=== PATIENT | male | born 1935 | race Caucasian/White ===

== ENCOUNTER 2018-06-05 14:27 | Observation (INO) | payer MEDICARE, BC ==
[~2018-06-05] VITALS: Ht 153.9 cm; Wt 52.6 kg
--- NOTE | 2018-06-05 15:58 | Diagnostic Imaging Report ---
Examination: Single AP view of the chest. COMPARISON: None. INDICATION: Chest pain DISCUSSION: The lungs are well-inflated. There is blunting of the left lateral costophrenic sulcus. Volume loss in the right lung apex with upward retraction of the hilum, right apical nodular opacities, and fullness of the right hilum. Cardiomediastinal contour is notable for postsurgical changes of median sternotomy and probable coronary artery bypass. Radiopaque catheters are partially visualized projecting over the upper abdomen. No acute osseous abnormalities. Healed fracture deformities of the left fifth through ninth ribs. Probable posttraumatic deformity of the proximal right humerus, partially visualized. IMPRESSION: Right hilar fullness with upward retraction, right apical volume loss and right apical nodules may be a sequela of prior granulomatous disease. In the absence of prior radiographs for comparison, CT scan of the chest with contrast is suggested for further evaluation. Blunting of the left lateral costophrenic sulcus may reflect pleural thickening in the setting of ipsilateral rib fracture deformities, though a small pleural effusion may have a similar appearance. Postsurgical changes of the mediastinum as above. Signed by: Dr. Jonathon Jonas M.D. on 06/05/2018 3:55 PM
[2018-06-05 16:30] LABS: BASOPHILS % 0.2 % (0.0-1.0); EOSINOPHILS % 0.2 % (0.0-6.0); HEMATOCRIT 37.6 % (38.2-49.6); HEMOGLOBIN 12.5 g/dL (14.0-18.0); LYMPHOCYTES # (AUTO) 0.8 (1.0-3.2); LYMPHOCYTES % 8.6 % (18.0-39.1); MEAN CORPUSCULAR HEMOGLOBIN 29.6 pg (28-32); MEAN CORPUSCULAR HGB CONC 33.2 g/dL (31-35); MEAN CORPUSCULAR VOLUME 89.1 fL (81-99); MONOCYTES # (AUTO) 0.7 (0.2-0.8); MONOCYTES % 7.7 % (4.4-11.3); NEUTROPHILS # (AUTO) 7.8 (2.1-6.9); NEUTROPHILS % 83.1 % (38.7-80.0); PLATELET COUNT 230 x10e3/uL (140-360); RED BLOOD COUNT 4.22 x10e6/uL (4.3-5.7); RED CELL DISTRIBUTION WIDTH 15.9 % (11.7-14.4)
[2018-06-05 16:36] LABS: PROTHROMBIN TIME 14.1 seconds (11.9-14.5)
[2018-06-05 16:37] LABS: PARTIAL THROMBOPLASTIN TIME 36.2 seconds (23.8-35.5)
[2018-06-05 16:46] LABS: ALBUMIN 2.5 g/dL (3.5-5.0); ALBUMIN/GLOBULIN RATIO 0.6 (0.8-2.0); ANION GAP 18.8 mmol/L (8-16); CALCIUM 8.9 mg/dL (8.4-10.2); CREATININE, SERUM 2.04 mg/dL (0.72-1.25); POTASSIUM 4.8 mmol/L (3.5-5.1)
[2018-06-05 16:52] LABS: CREATINE KINASE MB 6.7 ng/mL (0-5.0)
[2018-06-05] MEDS ORDERED: ASPIRIN 81 MG CHEW TAB PO ONE (18:15)
[2018-06-05 18:39] LABS: BILIRUBIN,URINE NEGATIVE (NEGATIVE); CLARITY,URINE HAZY (CLEAR); COLOR,URINE YELLOW (YELLOW); KETONES,URINE NEGATIVE (NEGATIVE); LEUKOCYTE ESTERASE ,URINE 2+ (NEGATIVE); NITRITE,URINE POSITIVE (NEGATIVE); PROTEIN,URINE DIPSTICK 1+ (NEGATIVE); URINE UROBILINOGEN 0.2 mg/dL (0.2 - 1)
[2018-06-05 18:40] LABS: AMORPHOUS SEDIMENT,URINE MODERATE (FEW); BACTERIA,URINE MANY /HPF; EPITHELIAL CELLS,URINE FEW /LPF
--- NOTE | 2018-06-05 19:02 | Diagnostic Imaging Report ---
EXAM: CT Chest WITHOUT contrast INDICATION: Follow-up chest x-ray ^F/U cxr COMPARISON: Chest radiograph 06/05/2018 TECHNIQUE: Chest was scanned utilizing a multidetector helical scanner from the lung apex through the level of the adrenal glands without administration of IV contrast. Coronal and sagittal reformations were obtained. Routine protocol was performed. IV CONTRAST: None COMPLICATIONS: None RADIATION DOSE: Total DLP: 348.7 mGy*cm Estimated effective dose: (DLP x 0.014 x size factor) mSv CTDIvol has been reviewed. It is below the limits set by the Radiation Protocol Committee (RPC). Dose modulation, iterative reconstruction, and/or weight based adjustment of the mA/kV was utilized to reduce the radiation dose to as low as reasonably achievable. FINDINGS: Absence of intravenous contrast decreases sensitivity for detection of lymphadenopathy and vascular pathology. LUNGS AND AIRWAYS: Diffuse emphysematous changes. Right hilar 8.4 x 5.3 x 6.7 cm mass (series 2 image 48) invades the mediastinum and occludes the upper lobe bronchus (coronal image 47). The mass is difficult to separate from the SVC and right pulmonary artery given the lack of IV contrast. Additional tree-in-bud opacities in the right upper lobe. Bilateral lower lobe bronchial wall thickening. Right upper lobe scarring. Irregular appearing interlobular septal thickening extending from the mass suspicious for lymphangitic carcinomatosis. Secretions in the trachea and mainstem bronchi. PLEURA: Small bilateral pleural effusions. HEART AND MEDIASTINUM: The thyroid gland is normal. Mediastinal lymphadenopathy, including (on series 2): * upper right paratracheal 1.1 cm node (image 33) * prevascular 1 cm node (image 39) * AP window 1.2 cm node (image 44) * subcarinal 1.8 cm node (image 61) The heart is normal in size.. There is no pericardial effusion. Coronary artery calcifications. CABG clips. Median sternotomy wires. UPPER ABDOMEN: Circumferential esophageal wall thickening. Small hiatal hernia. Partially visualized catheter in the visualized portions of the dilated left renal collecting system with cortical thinning. A catheter seen overlying the right collecting system on biology professor radiograph, with partial visualization of a likely dilated right-sided collecting system. BONES: Multiple old left rib fractures. No acute or aggressive osseous lesions. SOFT TISSUES: Mild anasarca. IMPRESSION: 1. Right hilar mass invades the mediastinum and is concerning for primary lung carcinoma. 2. Nodular interlobular septal thickening in the right upper lobe, suspicious for lymphangitic carcinomatosis. 3. Scattered tree-in-bud opacities in the right upper lobe may represent endobronchial spread of tumor, aspiration, or atypical infection. 4. Mildly enlarged mediastinal lymph nodes are concerning for metastatic disease. 5. Small bilateral pleural effusions. 6. Evaluation is limited without intravenous contrast. Mass is difficult to separate from the SVC. If there is concern for SVC syndrome, consider further evaluation with CT chest with contrast. 7. Partially visualized bilateral hydronephrosis. Right stent seen on biology professor radiograph and left stent partially visualized on CT. Signed by: DR. Joe Orozco MD on 06/05/2018 6:59 PM
--- OUTSIDE RECORDS SUMMARY | 2018-06-05 19:04 | XMS REPORT ---
Author Author [facility] Address Unknown Phone Unavailable Care Team Providers Care Information Assoc Name Role Phone Oliva CRUZ Unavailable Unavailable Problems This patient has no known problems. Allergies, Adverse Reactions, Alerts This patient has no known allergies or adverse reactions. Medications This patient has no known medications. Results Test Description Test Time Test Comments Text Results Atomic Results Result Comments CT CHEST WO 2018-06-05 18:38:00 [place] [address] Patient Name: SAMRA LADD MR #: [id number] : 1935 Age/Sex: 83/M Req #: [id number] [facility] Physician: CIPRIANO CRUZ MD Ordered by: DHAVAL BARKSDALE MD Report #: [id number] Location: [facility] Room/Bed: [place] [address] Procedure: [id number] CT/CT CHEST WO Exam Date: Exam Time: REPORT STATUS: Signed EXAM: CT Chest WITHOUT contrast INDICATION: Follow-up chest x-ray F/U cxr COMPARISON: Chest radiograph 06/05/2018 TECHNIQUE: Chest was scanned utilizing a multidetector helical scanner from the lung apex through the level of the adrenal glands without administration of IV contrast. Coronal and sagittal reformations were obtained. Routine protocol was performed. IV CONTRAST: None COMPLICATIONS: None RADIATION DOSE: Total DLP: 348.7 mGy*cm Estimated effective dose: (DLP x 0.014 x size factor) mSv CTDIvol has been reviewed. It is below the limits set by the Radiation Protocol Committee (RPC). Dose modulation, iterative reconstruction, and/or weight based adjustment of the mA/kV was utilized to reduce the radiation dose to as low as reasonably achievable. FINDINGS: Absence of intravenous contrast decreases sensitivity for detection of lymphadenopathy and vascular pathology. LUNGS AND AIRWAYS: Diffuse emphysematous changes. Right hilar 8.4 x 5.3 x 6.7 cm mass (series 2 image 48) invades the mediastinum and occludes the upper lobe bronchus (coronal image 47). The mass is difficult to separate from the SVC and right pulmonary artery given the lack of IV contrast. Additional tree-in-bud opacities in the right upper lobe. Bilateral lower lobe bronchial wall thickening. Right upper lobe scarring. Irregular appearing interlobular septal thickening extending from the mass suspicious for lymphangitic carcinomatosis. Secretions in the trachea and mainstem bronchi. PLEURA: Small bilateral pleural effusions. HEART AND MEDIASTINUM: The thyroid gland is normal. Mediastinal lymphadenopathy, including (on series 2): * upper right paratracheal 1.1 cm node (image 33) * prevascular 1 cm node (image 39) * AP window 1.2 cm node (image 44) * subcarinal 1.8 cm node (image 61) The heart is normal in size.. There is no pericardial effusion. Coronary artery calcifications. CABG clips. Median sternotomy wires. UPPER ABDOMEN: Circumferential esophageal wall thickening. Small hiatal hernia. Partially visualized catheter in the visualized portions of the dilated left renal collecting system with cortical thinning. A catheter seen overlying the right collecting system on social work professor radiograph, with partial visualization of a likely dilated right-sided collecting system. BONES: Multiple old left rib fractures. No acute or aggressive osseous lesions. SOFT TISSUES: Mild anasarca. IMPRESSION: 1. Right hilar mass invades the mediastinum and is concerning for primary lung carcinoma. 2. Nodular interlobular septal thickening in the right upper lobe, suspicious for lymphangitic carcinomatosis. 3. Scattered tree-in-bud opacities in the right upper lobe may represent endobronchial spread of tumor, aspiration, or atypical infection. 4. Mildly enlarged mediastinal lymph nodes are concerning for metastatic disease. 5. Small bilateral pleural effusions. 6. Evaluation is limited without intravenous contrast. Mass is difficult to separate from the SVC. If there is concern for SVC syndrome, consider further evaluation with CT chest with contrast. 7. Partially visualized bilateral hydronephrosis. Right stent seen on social work professor radiograph and left stent partially visualized on CT. Signed by: DR. Joe Parker MD on 06/05/2018 6:59 PM Dictated By: JOE PARKER MD 58 Transcribed By: TYRELL on 06/05/181858 COPY TO: DHAVAL BARKSDALE MD CHEST SINGLE (NOT PORTABLE) 2018-06-05 15:51:00 [place] [address] Patient Name: SAMRA LADD MR #: [id number] : 1935 Age/Sex: 83/M Req #: [id number] Adm Physician: Ordered by: DHAVAL BARKSDALE MD Report #: [id number] Location: ER Room/Bed: Procedure: [id number] DX/CHEST SINGLE (NOT PORTABLE) Exam Date: 06/05/18 Exam Time: 1540 REPORT STATUS: Signed Examination: Single AP view of the chest. COM PARISON: None. INDICATION: Chest pain DISCUSSION: The lungs are well-inflated. There is blunting of the left lateral costophrenic sulcus. Volume loss in the right lung apex with upward retraction of the hilum, right apical nodular opacities, and fullness of the right hilum. Cardiomediastinal contour is notable for postsurgical changes of median sternotomy and probable coronary artery bypass. Radiopaque catheters are partially visualized projecting over the upper abdomen. No acute osseous abnormalities. Healed fracture deformities of the left fifth through ninth r ibs. Probable posttraumatic deformity of the proximal right humerus, partially visualized. IMPRESSION: Right hilar fullness with upward retraction, right apical volume loss and right apical nodules may be a sequela of prior granulomatous disease. In the absence of prior radiographs for comparison, CT scan of the chest with contrast is suggested for further evaluation. Blunting of the left lateral costophrenic sulcus may reflect pleural thickening in the setting of ipsilateral rib fracture deformities, though a small pleural effusion may have a similar appearance. Postsurgical changes of the mediastinum as above. Signed by: Dr. Jmaes Salazar M.D. on 06/05/2018 3:55 PM Dictated By: JAMES SALAZAR MD [id number] Transcribed By: TYRELL on 06/05/18 3947 COPY TO: DHAVAL BARKSDALE MD
[2018-06-05] MEDS ORDERED: SIMVASTATIN20 MG PO (19:31)
[2018-06-05] MEDS ORDERED: BISOPROLOL FUMAR5 MG PO (19:31)
[2018-06-05] MEDS ORDERED: ESTAZOLAM2 MG PO (19:31)
[2018-06-05] MEDS ORDERED: PANTOPRAZOLE SO40 MG PO (19:31)
[2018-06-05] MEDS ORDERED: LEVOTHYROXINE50 MCG PO (19:31)
[2018-06-05 19:48] VITALS: BP 147/71
[2018-06-05 20:00] VITALS: BP 147/71
[2018-06-05 21:00] VITALS: BP 147/71
--- NOTE | 2018-06-05 21:38 | History and Physical ---
He is an 83-year-old male patient of mine, presented to the emergency room with complaint of profound weakness, nausea and vomiting. HISTORY OF PRESENT ILLNESS: Mr. Benson is an 83-year-old male patient presented to the emergency room with a complaint of severe weakness. Patient was having difficulties with eating. Patient stating that whenever he eat, after that he just started vomiting and unable to hold any food. PAST MEDICAL HISTORY: Patient has head and neck cancer and history of hypertension and anxiety. ALLERGIES: NO KNOWN DRUG ALLERGIES. SOCIAL HISTORY: Patient is a smoker and denies using alcohol. REVIEW OF SYSTEMS: Patient has generalized severe weakness and unable to keep the food, nausea, vomiting, and weakness. Patient is also having complaint of bilateral upper extremity edema. FAMILY HISTORY: Hypertension. PHYSICAL EXAMINATION GENERAL: An elderly male patient, lying in the bed. VITAL SIGNS: Temperature 97.6, pulse rate 89, respirations 20, blood pressure 105/76, O2 sat 98%. NECK: JVD present. LUNGS: Bilateral equal air entry. Bilateral rhonchi present. HEART: S1, S2, regular. Systolic murmur present. ABDOMEN: Soft. Bowel sounds present. NEUROLOGIC: No focal neurological deficit. ADMITTING IMPRESSION AND DIAGNOSES 1. Acute renal failure with dehydration. 2. Gastritis. 3. Hyponatremia. 4. Malnutrition. PLAN: Patient has bilateral upper extremity swelling. 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 On the chest x-ray, patient has a right hilar fullness. So, patient will be getting the CT scan of the chest with contrast to rule out any tumor. Patient will be getting IV fluid. Patient has significant hyponatremia, which makes it very suspicious for any underlying malignancy. We will obtain pulmonary and nephrology consult and give patient IV fluids. Further course based on the CT report. Job#: [id number] RASHAAD
[2018-06-06] VITALS: BP 127/75
[2018-06-06 00:50] LABS: CREATINE KINASE MB 4.7 ng/mL (0-5.0)
[2018-06-06 04:00] VITALS: BP 141/83
[2018-06-06 06:04] LABS: BASOPHILS % 0.2 % (0.0-1.0); EOSINOPHILS % 0.5 % (0.0-6.0); HEMATOCRIT 37.4 % (38.2-49.6); LYMPHOCYTES # (AUTO) 0.8 (1.0-3.2); LYMPHOCYTES % 9.3 % (18.0-39.1); MEAN CORPUSCULAR HGB CONC 32.1 g/dL (31-35); MEAN CORPUSCULAR VOLUME 90.3 fL (81-99); MONOCYTES # (AUTO) 0.9 (0.2-0.8); MONOCYTES % 10.5 % (4.4-11.3); PLATELET COUNT 217 x10e3/uL (140-360); RED BLOOD COUNT 4.14 x10e6/uL (4.3-5.7); RED CELL DISTRIBUTION WIDTH 15.4 % (11.7-14.4)
[2018-06-06 06:22] LABS: ALBUMIN 2.3 g/dL (3.5-5.0); ALBUMIN/GLOBULIN RATIO 0.6 (0.8-2.0); ANION GAP 18.4 mmol/L (8-16); CALCIUM 8.8 mg/dL (8.4-10.2); CREATININE, SERUM 2.14 mg/dL (0.72-1.25); POTASSIUM 4.4 mmol/L (3.5-5.1)
[2018-06-06 06:43] LABS: CREATINE KINASE MB 4.3 ng/mL (0-5.0)
[2018-06-06 08:11] VITALS: BP 141/80
[2018-06-06] MEDS ORDERED: PANTOPRAZOLE SOD 40 MG TABEC PO SCH (09:00)
[2018-06-06] MEDS ORDERED: LEVOTHYROXINE SODIUM 50 MCG TAB PO SCH (09:00)
[2018-06-06] MEDS ORDERED: PROMETHAZINE HC25 M1 PO (09:12)
[2018-06-06 11:52] VITALS: BP 143/89
[2018-06-06] MEDS ORDERED: ACETYLCYSTEINE 20% INHAL SOLN 30 ML VIAL INH SCH (13:00)
[2018-06-06] MEDS ORDERED: ALBUTEROL/IPRATROPIUM 3 ML NEB NEB PRN (14:00)
[2018-06-06 15:54] VITALS: BP 135/66
[2018-06-06] MEDS ORDERED: SIMVASTATIN 20 MG TAB PO SCH (21:00)
--- NOTE | 2018-08-08 01:23 | Discharge Summary ---
CHIEF COMPLAINT: Hyponatremia. FINAL DIAGNOSES 1. Right hilar mass. 2. Hyponatremia. 3. Renal failure. DISPOSITION: [facility]. HOSPITAL COURSE: An 83-year-old male presents to emergency room with issues of dizziness, weakness, near syncope. He described as feeling lightheaded, faint, weak all over, began about 1 week prior to admission and still persists. Has had similar symptoms previously. Has been receiving care in my office. Denies any headaches, fainting episodes, or head injuries. Denies any chest pain or palpitation. Denies any change in vision. No difficulty in swallowing. Underwent review and evaluation in the emergency room. Blood work and x-rays were obtained. Chest x-ray showed evidence of a patchy infiltrate in the right perihilar region and right upper lobe. CBC was unremarkable. Sodium was noted to be hyponatremic and the patient was admitted to facility for care regarding issues of near syncope with findings of hyponatremia. The patient was being cared for on the med-surg floor, was on a cardiac diet, resting comfortably, was receiving his routine daily medications. Laboratory studies were showing a sodium of 127, potassium 4.4. Kidney functions; BUN 37, creatinine 2.14. Glucose 70. CBC was stable. There were concerns regarding the right hilar mass. Recommendations were noted about pulmonary for transfer to a higher level of care regarding his chest x-ray findings, sampling of the lung findings for evaluation for possible tumor or metastasis. An agreement was made to [place] the [place] to [facility] for aggressive upper level of care and the patient was transferred on June 06, 2018 in stable condition. EKG is showing sinus rhythm with premature atrial complexes, left bundle branch block. Right upper extremity Doppler studies revealed no evidence of DVT. As I mentioned, patient was transferred via ambulance to [facility] for higher level of care, for further aggressive evaluation, higher level of management regarding right hilar mass along with his kidney status. Copies of his diagnostic studies accompanied him in transfer along with his MAR sheet. Dictated By: XUAN Nails Job#: [id number] RASHAAD
== END 2018-06-06 18:58 | disposition other institution (70) ==
LOC: EDBD 14:27 → ER 14:27 → ERHOLD 19:01 → MED/SURG 19:49
PROVIDERS: ADMIT Internal Medicine; ATTEND Internal Medicine
DX: R91.8 Other nonspecific abnormal finding of lung field (principal); E87.1 Hypo-osmolality and hyponatremia; K29.70 Gastritis, unspecified, without bleeding; E46 Unspecified protein-calorie malnutrition; N17.9 Acute kidney failure, unspecified; Z85.89 Personal history of malignant neoplasm of other organs and systems; I10 Essential (primary) hypertension
CPT/HCPCS: 36415 ×2; 71045; 71250; 80053 ×2; 81001; 82550 ×2; 82553 ×2; 84484 ×2; 85025 ×2; 85610; 85730; 93005; 93971; 94640; 99284; G0378 ×2; S0164